=== PATIENT | male | born 1995 | race Caucasian/White ===

== ENCOUNTER 2016-11-20 00:32 | Emergency (ER) | payer OTHER ==
[~2016-11-20] VITALS: Ht 157.5 cm; Wt 48.0 kg
[~2016-11-20 00:32] MED LIST: ONDA4TAB14 PO
[2016-11-20 00:53] VITALS: Ht 157.5 cm; Wt 48.0 kg
[2016-11-20] MEDS ORDERED: IBUP-1542 PO (04:01)
[2016-11-20] MEDS ORDERED: CETI10CA PO (04:01)
[2016-11-20] MEDS ORDERED: GUAI120S26 PO (04:01)
--- NOTE | 2016-11-20 04:01 | ERD ---
ER Documentation Chief Complaint Date/Time DATE: 11/20/16 TIME: 03:[address] x 1 week HPI 1-year-old male presents here in emergency department for complaints of throat runny nose nasal congestion and cough for 1 week. Patient has been having dry cough, does not cough up any phlegm or blood. Patient does not have any shortness of breath or wheezing. Patient did not take any medications to help with symptoms. ROS All systems reviewed and are negative except as per history of present illness. Medications Home Meds Active Scripts Ondansetron (Ondansetron Odt) 4 Mg Tab.rapdis, 4 MG PO Q6H Y for NAUSEA AND/OR VOMITING, #10 TAB Prov:RADHA MITCHELL NP 01/01/16 Allergies Allergies: Coded Allergies: No Known Allergy (Unverified , 10/16/11) PMhx/Soc History of Surgery: Yes (ORAL TUMOR) Anesthesia Reaction: No Hx Neurological Disorder: Yes (EPILEPSY) Hx Respiratory Disorders: No Hx Cardiac Disorders: No Hx Psychiatric Problems: No Hx Miscellaneous Medical Probl: Yes (AUTISTIC) Hx Alcohol Use: No Hx Substance Use: No Hx Tobacco Use: No Smoking Status: Never smoker FmHx Family History: No coronary disease, No diabetes, No other Physical Exam Vitals Vital Signs Date Time Temp Pulse Resp B/P Pulse Ox O2 Delivery O2 Flow Rate FiO2 11/20/16 00:53 98.5 65 20 95/55 97 Physical Exam GENERAL: The patient is well developed and appropriate for usual state of health, in no apparent distress. HEENT: Atraumatic. Ears: Normal tympanic membrane, no erythema or bulging. No ear canal swelling. No ear discharge. Nose: edematous nasal turbinates are clear nasal discharge throat: oropharynx erythematous with postnasal drip. No tonsillar swelling or tonsillar exudates. No lymphadenopathy. CHEST: Clear to auscultation bilaterally. There are no rales, wheezes or rhonchi. HEART: Regular rate and rhythm. No murmurs, clicks, rubs or gallops. No S3 or S4. ABDOMEN: Soft, nontender and nondistended. Good bowel sounds. No rebound or guarding. No gross peritonitis. No gross organomegaly or masses. No Sampson sign or McBurney point tenderness. BACK: No midline or flank tenderness. EXTREMITIES: Equal pulses bilaterally. There is no peripheral clubbing, cyanosis or edema. No focal swelling or erythema. Full range of motion. Grossly neurovascularly intact. NEURO: Alert and oriented. Cranial nerves 2-12 intact. Motor strength in all 4 extremities with 5/5 strength. Sensation grossly intact. Normal speech and gait. SKIN: There is no apparent rash or petechia. The skin is warm and dry. HEMATOLOGIC AND LYMPHATIC: There is no evidence of excessive bruising or lymphedema. No gross cervical, axillary, or inguinal lymphadenopathy. Procedures/MDM Medical Decision Making: Patient symptoms are most likely consistent with upper respiratory tract infection, which viral in origin. There is low suspicion for Pneumonia at this time since patients lungs sounds are clear, patient O2 saturation is normal and patient doesnt show any respiratory distress. Radiology exams not indicated at this time. There is low suspicion for other cardiopulmonary emergencies at this time such as CHF, Pulmonary Embolism, Pneumothorax, Aortic Aneurysm or any other cardiopulmonary emergencies at this time. There is low suspicion for sepsis. Patient appears well and is hemodynamically stable. Fever is controlled with medicines. Disposition: Home. Condition: Stable Prescriptions: Zyrtec, ibuprofen, guaifenesin DM, Instructions: Patient is advised to take medications as prescribed. Patient is advised to rest. Patient advised to increase fluid intake, do humidifier at home and if possible, do salt water gargles. Patient is advised that if symptoms are worse, shortness of breath, uncontrolled fever, stridor, vomiting, worst signs and symptoms to return to emergency department immediately. Otherwise, patient is advised to follow up with primary doctor in 5-7 days. Disclaimer: Inadvertent spelling and grammatical errors are likely due to EHR/ dictation software use and do not reflect on the overall quality of patient care. Also, please note that the electronic time recorded on this note does not necessarily reflect the actual time of the patient encounter. Departure Diagnosis: Primary Impression: URI (upper respiratory infection) URI type: unspecified viral URI Qualified Code: J06.9 - Viral upper respiratory tract infection Condition: Stable Patient Instructions: Uri, Viral, No Abx (Child) Additional Instructions: Patient is advised to take medications as prescribed. Patient is advised to rest. Patient advised to increase fluid intake, do humidifier at home and if possible, do salt water gargles. Patient is advised that if symptoms are worse, shortness of breath, uncontrolled fever, stridor, vomiting, worst signs and symptoms to return to emergency department immediately. Otherwise, patient is advised to follow up with primary doctor in 5-7 days. RADHA MITCHELL NP Nov 20, 2016 04:00
== END 2016-11-20 04:07 | disposition home or self-care (01) ==
LOC: FTE 00:32
DX: J06.9 Acute upper respiratory infection, unspecified (principal); F84.0 Autistic disorder
CPT/HCPCS: 99283